=== PATIENT | male | born 1940 ===

== ENCOUNTER 2017-09-07 03:57 | Inpatient (IN) | payer OTHER ==
--- NOTE | 2017-08-27 16:21 | History & Physical Pre-Op ---
General Information and HPI MD Statement: I have seen and personally examined NEHEMIAH HE and documented this H&P. The patient is a 77 year old M who presents with a patient stated chief complaint of low back pain for "years" which has worsened over the last month with classic neurogenic claudication. Source of Information: patient, old records Exam Limitations: no limitations History of Present Illness: Nehemiah is a 77-year-old pleasant gentleman who has been complaining of mild low back pain for "years", with sudden onset severity and progressive worsening over the last month with no apparent injury or precipitating event. He states the pain is now "severe" with radiation to bilateral anterior thighs, left side greater than right, and occasionally into his knees. He describes the pain in his lower back as "pressure". He denies any foot involvement. He does state that his legs buckle with ambulation. He denies any new bowel or bladder changes but does have symptoms from BPH. He is unable to stand or walk due to the discomfort and weakness. He does admit to some improvement with sitting. He rates the pain as a 9/10 in intensity. His MRI shows severe spinal stenosis at L3-4 and moderate spinal stenosis at L4-5. Due to his progressively worsening symptoms and MRI findings, he wants nothing more to do with nonsurgical treatment and has been consented for a posterior lumbar decompression and fusion with iliac crest bone grafting L3-S1 on 09/07/2017. Allergies/Medications Allergies: Coded Allergies: No Known Allergies (08/27/17) Home Med list Acetaminophen (Tylenol Extra Strength) 500 MG TABLET 1 TAB PO TID PAIN ( Reported) Atorvastatin Calcium 20 MG TABLET 1 TAB PO DAILY CHOLESTEROL (Reported) Escitalopram Oxalate 20 MG TABLET 1 TAB PO DAILY GI (Reported) Oxycodone HCl 5 MG TABLET 1 TAB PO BIDP PRN PAIN (Reported) Pregabalin (Lyrica) 75 MG CAPSULE 1 CAP PO BID PAIN (Reported) Tamsulosin HCl (Flomax) 0.4 MG CAP.ER.24H 1 TAB PO DAILY URINE FLOW (Reported ) Compliance With Home Meds: GOOD Past History Medical History Neurological: NONE EENT: cataracts, recent broken jaw due to trauma Cardiovascular: hyperlipidemia Respiratory: NONE Gastrointestinal: GERD Hepatic: NONE Renal: benign prost hyperplasia Musculoskeletal: chronic back pain, disk herniation, degen joint disease, fracture, osteoarthritis, sciatica, spinal stenosis Psychiatric: NONE Endocrine: hypothyroidism Blood Disorders: NONE Cancer(s): NONE 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 FATHER, ; Cause: Unknown cause of morbidity or mortality. SON (ADHD). Age 23. 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 Exam & Diagnostic Data Last 24 Hrs of Vital Signs/I&O Height: 5'6" Weight: 175lbs. Physical Exam General Appearance Alert, Oriented X3, Cooperative, Mild Distress Skin No Rashes, No Breakdown, No Significant Lesion HEENT Atraumatic, PERRLA, EOMI, Mucous Membr. moist/pink Neck Supple, No JVD, No thryomegaly, +2 Carotid Pulse wo Bruit Lymphatic Cervical nl Cardiovascular Regular Rate, Normal S1, Normal S2, No Murmurs Lungs Clear to Auscultation, Normal Air Movement Abdomen Normal Bowel Sounds, Soft, No Tenderness, No Masses Neurological Weak +3/5 Quads bilaterally., Atrophy of the quads bilaterally, Absent bilateral patellar reflexes, +2 bilateral achilles reflexes, LROM of lumbar spine with pain Extremities No Edema Vascular Normal Pulses Medication List Current Psychiatric Med(s): Flomax 0.1mg daily Atorvastatin 20mg daily Lyrica 75mg BID Esomeprazole 20mg daily Oxycodone 5mg q 4 hrs prn pain Tylenol 500mg q 4-6 hrs prn pain Assessment/Plan Assessment/Plan: Assessment: Severe spinal stenosis L3-4 and moderate spinal stenosis at L4-5 Plan: Nehemiah is scheduled for a posterior lumbar decompression and fusion with iliac crest bone grafting L3-S1 on 09/07/2017. We discussed the procedure in full detail as well as the pre-and postoperative course, follow-up care, and anticipated recovery. We also discussed the do's and don'ts and postoperative discharge instructions. We discussed the benefits, alternatives, and risks, not to exclude, , paralysis, infection, bleeding, continued pain, failure of the surgery, need for future surgery, DVT, vascular injury, CSF leak, etc., and given these risks, he still wishes to proceed. He has been seen by Dr. Jennings for preoperative clearance. He is scheduled to have his wire removed from his jaw prior to his spinal surgery. Any changes in this patient's plan is based on this patient's outpatient clinical presentation. As Ranked By This Provider Problem List: 1. BPH (benign prostatic hyperplasia) 2. Hypothyroidism 3. Hyperlipidemia 4. GERD (gastroesophageal reflux disease) Copies To: Stephen RUANO,Simon Attending MD Review Statement Attending Statement Attending MD Statement: examined this patient, discuss w/resident/PA/DIESEL DINKEY OPERATOR, agreed w/resident/PA/DIESEL DINKEY OPERATOR, reviewed images
[~2017-09-07] VITALS: Ht 172.7 cm; Wt 83.9 kg
[~2017-09-07 03:57] MED LIST: ATORVASTATIN CA20 M1 PO; FLOMAX0.4 M1 PO
[2017-09-07] MEDS ORDERED: LYRICA75 M1 PO ×2 (08:15→17:51)
[2017-09-07] MEDS ORDERED: ESCITALOPRAM OX20 MG PO ×2 (08:16→17:51)
[2017-09-07] MEDS ORDERED: TYLENOL EXTRA500 M2 PO ×2 (08:16→17:51)
[2017-09-07] MEDS ORDERED: OXYCODONE HCL5 M1 PO (08:16)
--- NOTE | 2017-09-07 16:14 | Operative Report ---
Operative/Inv Procedure Report Surgery Date: 09/07/17 Name of Procedure: Lumbar laminectomies discectomy and fusion L2 3 3445 local bone lateral intertransverse process fusion L2 to L5 bilaterally. These fluoroscopy Pre-Operative Diagnosis: Severe spinal stenosis L2 3 3445 Post-Operative Diagnosis: Same Estimated Blood Loss: 600cc Surgeon/Die Assembler: Stephen RUANO,Simon Lemus M.D. Anesthesia: general endotracheal tube Monitors: Neuro Operative/Procedure Note Note: After adequate general anesthesia was achieved the patient was placed in the prone position and the back was sterilely prepped and draped. Incision was made in the midline and carried down sharply over the dorsal elements. A metallic object was placed and fluoroscopy was used to identify surgical level. The high -speed bur was used to decorticate the dorsal elements from the inferior aspect of S2 to the superior aspect of L5. Spinous processes of the inferior aspect of L2 entire aspect of L3 and L4 were removed with the Kerrison and Leksell. The disc interval between L5 and S1 was decorticated with the high-speed bur and thickened ligamentum flavum was removed performing a decompression at that level. There is severe thickening of the ligamentum flavum and encroachment of the degenerative facet joints at L3445. This was all debrided. There is severe encroachment laterally extending medial to the pedicles of L4 and L3 which was all debrided. The neuro monitors showed no abnormality during the decompression. There is severe foraminal stenosis which was debrided of hypertrophied facet bone thickened capsule and ligamentum flavum. The stenosis was bilateral. Bone graft was harvested at the time of laminectomies and removal of spinous processes bone quality was excellent. The lateral intertransverse process region from L2 to L5 was decorticated with the high-speed bur and bone was packed laterally. The wound was copiously irrigated and Gelfoam was laid over the laminotomy site. A closure the lumbodorsal fascia was performed with absorbable suture as was subcutaneous tissue. Skin was closed with azalea.
--- NOTE | 2017-09-07 17:41 | Patient Discharge Instructions ---
Acute Coronary Syndrome Inclusion Criteria At DC or during hospital stay patient has or had the following: ACS DIAGNOSIS No Discharge Core Measures Meds if any: Prescribed or Continued at Discharge Meds if any: NOT Prescribed or Continued at Discharge Congestive Heart Failure Inclusion Criteria At DC or during hospital stay patient has or had the following: CHF DIAGNOSIS No Discharge Core Measures Meds if any: Prescribed or Continued at Discharge Meds if any: NOT Prescribed or Continued at Discharge Cerebrovascular accident Inclusion Criteria At DC or during hospital stay patient has or had the following: CVA/TIA Diagnosis No Discharge Core Measures Meds if any: Prescribed or Continued at Discharge Meds if any: NOT Prescribed or Continued at Discharge Venous thromboembolism Inclusion Criteria VTE Diagnosis No VTE Type NONE VTE Confirmed by (Test) NONE Discharge Core Measures - Per Current guidelines, there needs to be overlap - treatment for the first 5 days of Warfarin therapy. - If discharged on Warfarin prior to 5 days of - overlap therapy, the patient will need to be - assessed for post discharge needs including - *Post discharge parental anticoagulation - *Warfarin and/or parental anticoagulation education - *Follow up date to check INR post discharge At least 5 days overlap therapy as Inpatient No Meds if any: Prescribed or Continued at Discharge Note: Overlap Therapy is Warfarin and Anticoagulant Meds if any: NOT Prescribed or Continued at Discharge
[2017-09-07 17:44] LABS: ABSOLUTE BASOPHIL COUNT 0 /CUMM (0.0-0.2); ABSOLUTE EOSINOPHIL COUNT 0 /CUMM (0.0-0.7); ABSOLUTE GRANULOCYTE CT 3.3 /CUMM (1.4-6.5); ABSOLUTE LYMPH COUNT 0.7 /CUMM (1.2-3.4); ABSOLUTE MONOCYTE COUNT 0.2 /CUMM (0.10-0.60); BASOPHIL % 0.3 % (0.0-2.0); EOSINOPHIL % 1.2 % (0-5); GRANULOCYTE % 77.9 % (42.2-75.2); HEMATOCRIT 39.1 % (42-52); MEAN CORPUSCULAR HGB 29.4 PG (27.0-31.0); MEAN CORPUSCULAR HGB CONC 32.5 G/DL (33.0-37.0); MEAN CORPUSCULAR VOLUME 90.3 FL (80.0-94.0); MEAN PLATELET VOLUME 9.3 FL (7.4-10.4); PLATELET COUNT 172 /CUMM (130-400); RBC DISTRIBUTION WIDTH 15.3 % (11.5-14.5); RED BLOOD CELL CT 4.33 /CUMM (4.70-6.10); WHITE BLOOD CELL COUNT 4.3 /CUMM (4.8-10.8)
[2017-09-07] MEDS ORDERED: FLOMAX0.4 M1 PO (17:51)
[2017-09-07] MEDS ORDERED: MILK OF MA400 MG/52 PO (17:51)
[2017-09-07] MEDS ORDERED: ATORVASTATIN CA20 M1 PO (17:51)
[2017-09-07] MEDS ORDERED: DULCOLAX10 M1 RC (17:51)
[2017-09-07] MEDS ORDERED: COLACE100 M1 PO (17:51)
[2017-09-07] MEDS ORDERED: MULTIVITAMINS1 EAC9 PO (17:51)
[2017-09-07] MEDS ORDERED: PERCOCET 5-3251 EACH PO (17:51)
[2017-09-07] MEDS ORDERED: OS-CAL 500+D31 EAC1 PO (17:51)
[2017-09-07] MEDS ORDERED: VITAMIN D31000 UNI2 PO (17:51)
[2017-09-07 18:33] VITALS: BP 130/60
--- NOTE | 2017-09-07 19:15 | RADIOLOGY REPORT ---
EXAMINATION: CR LUMBAR SPINE/INTRAOPERATIVE FLUOROSCOPY CLINICAL INDICATION: L2-S1 laminectomy and discectomy in OR. COMPARISON: None TECHNIQUE/FINDINGS: Fluoroscopic equipment was dedicated to the operating room for the performance of an intraoperative procedure. Single spot film was acquired and is archived in PACS, demonstrating a surgical marker overlying the posterior facet joints at the L3-L4 level. Please refer to operative notes for procedural detail. FLUOROSCOPY TIME: 0.1 minutes. IMPRESSION: Administrative dictation for intraoperative fluoroscopy and image archiving in PACS. Please refer to operative notes for details.
--- NOTE | 2017-09-07 20:16 | PN- Orthopedic ---
Subjective Subjective: Postop check Pt has no major complaints. He admits to soreness at the incision site, but pain is well controlled. Reports poor appetite, but no nausea. Tolerating sips of water. العلي was removed at 6pm. Still awaiting void. Otherwise denies KAUFMAN, dizziness, chest pain, shortness of breath. Objective Vital Signs and I&Os Vital Signs Date Time Temp Pulse Resp B/P B/P Pulse O2 O2 Flow FiO2 Mean Ox Delivery Rate 09/07 1832 97.5 64 18 130/60 100 Nasal 3.0L Cannula 09/07 1829 100 Nasal 2.0L Cannula Intake & Output 09/07 0800 09/07 0000 09/06 1600 09/06 0809/06 0000 Intake Total Output Total Balance Patient 175 lb Weight Physical Exam: Gen: Pt is awake and alert. NAD. Oriented. Cardiac: regular Pulmonary: lungs are CTA bilaterally. No wheezes or rales noted. Ext: Back dressing c/d/i. No surrounding ecchymosis noted. Feet are warm. TEDS in place. LE sensation is intact bilaterally. Strength of DF and PF are 4/5, equal bilaterally. No LE edema or calf tenderness appreciated bilaterally. Assessment/Plan Assessment/Plan Pt is a 77 yo M who is POD #0 s/p lum laminectomy L2-5 with fusion /local bone graft. He remains stable from a surgical standpoint. Plan: -Pain control with percocet or low dose morphine if needed. -Advance diet as tolerated. IVF until tolerating adequate po. -Awaiting void. Due at 2am. -Pt consult in AM for mobilization/ambulation. -Ancef x 3 doses. -Bowel regimen with Colace TID. -Home meds resumed. -Loretta (Dr. Mitchell's PA) to round in AM. Core Measures Venous Thromboembolism VTE Risk Factors Surgery No Mechanical VTE Prophylaxis d/t N/A MechProphylax Ordered No VTE Pharm Prophylaxis d/t NA PharmProphylax ordered
[2017-09-07 22:30] VITALS: BP 130/80
[2017-09-08 06:55] VITALS: BP 126/78
[2017-09-08 09:01] LABS: ABSOLUTE BASOPHIL COUNT 0 /CUMM (0.0-0.2); ABSOLUTE EOSINOPHIL COUNT 0 /CUMM (0.0-0.7); ABSOLUTE GRANULOCYTE CT 8.3 /CUMM (1.4-6.5); ABSOLUTE LYMPH COUNT 0.8 /CUMM (1.2-3.4); ABSOLUTE MONOCYTE COUNT 1.1 /CUMM (0.10-0.60); BASOPHIL % 0 % (0.0-2.0); EOSINOPHIL % 0.1 % (0-5); GRANULOCYTE % 81.6 % (42.2-75.2); HEMATOCRIT 35.4 % (42-52); MEAN CORPUSCULAR HGB CONC 33.4 G/DL (33.0-37.0); MEAN CORPUSCULAR VOLUME 89.8 FL (80.0-94.0); MEAN PLATELET VOLUME 10.1 FL (7.4-10.4); PLATELET COUNT 198 /CUMM (130-400); RBC DISTRIBUTION WIDTH 15.2 % (11.5-14.5); RED BLOOD CELL CT 3.94 /CUMM (4.70-6.10)
[2017-09-08 12:39] LABS: WHITE BLOOD CELL COUNT 10.2 /CUMM (4.8-10.8)
--- NOTE | 2017-09-08 13:03 | PN- Orthopedic ---
Subjective Subjective: No acute events overnight. Patient rested well and is now sitting in the chair. He is tolerating a diet and voiding without difficulty. Admits to some pain, even after taking morphine. No bowel movement as of yet. Denies headache, dizziness, chest pain, shortness of breath, weakness, numbness. Objective Vital Signs and I&Os Vital Signs Date Time Temp Pulse Resp B/P B/P Pulse O2 O2 Flow FiO2 Mean Ox Delivery Rate 09/08 0844 82 118/72 09/08 0655 98.0 78 16 126/78 98 Nasal 2.0L Cannula 09/08 0000 Nasal 2.0L Cannula 09/070 98.0 85 20 130/80 98 09/07 2046 Nasal 2.0L Cannula 09/08 2043 85 130/80 09/07 183 97.5 64 18 130/60 100 Nasal 3.0L Cannula 09/07 1830 100 Nasal 2.0L Cannula Intake & Output 09/08 1600 09/08 0800 09/08 0000 09/07 1600 09/07 0800 09/07 0000 Intake Total 750 650 Output Total 1110 Balance -360 650 Intake, IV 700 450 Intake, Oral 50 200 Output, Urine 1110 Patient 0 lb Weight Weight Reported by Patient Measurement Method Physical Exam: Gen: Pt is awake and alert. NAD. Oriented. Cardiac: regular Pulmonary: lungs are CTA bilaterally. No wheezes or rales noted. Ext: Back dressing c/d/i. No surrounding ecchymosis noted. Feet are warm. TEDS in place. LE sensation is intact bilaterally. Strength of DF and PF are 4/5, equal bilaterally. No LE edema or calf tenderness appreciated bilaterally. Assessment/Plan Assessment/Plan Pt is a 77 yo M who is POD #1 s/p lum laminectomy L2-5 with fusion /local bone graft. He remains stable from a surgical standpoint. Plan: -Pain control with percocet or low dose morphine if needed. -To the regular diet. Okay to discontinue IV fluids. -Continue physical therapy for mobilization. -Ancef to be complete this afternoon. -Bowel regimen with Colace TID. -Home meds resumed. -Dr. Mitchell was in to see the patient and documented a note in the paper chart. I spoke with Loretta Mahoney PA-C and she agrees with the plan. Core Measures Venous Thromboembolism VTE Risk Factors Surgery No Mechanical VTE Prophylaxis d/t N/A MechProphylax Ordered No VTE Pharm Prophylaxis d/t NA PharmProphylax ordered
[2017-09-08 14:46] VITALS: BP 110/78
[2017-09-08 14:47] VITALS: BP 124/58
[2017-09-08 22:10] VITALS: BP 112/60
[2017-09-09 06:33] VITALS: BP 102/60
--- NOTE | 2017-09-09 08:21 | PN- Orthopedic ---
Subjective Subjective: pt in chair, tolerating diet. pain well controlled with oral pain medication this morning and overnight. ambulated with PT yesterday. voiding, no BM. Denies Cp/SOB/KAUFMAN/dizzy/fever Objective Vital Signs and I&Os Vital Signs Date Time Temp Pulse Resp B/P B/P Pulse O2 O2 Flow FiO2 Mean Ox Delivery Rate 09/09 0742 102/60 09/09 0633 98.0 92 18 102/60 96 Room Air 09/08 2210 98.3 82 20 112/60 94 Nasal Cannula 09/08 1447 98.8 75 20 124/58 95 09/08 0944 82 118/72 Intake & Output 09/09 1600 09/09 0000 09/08 1600 09/08 0000 Intake Total 798 858 9407 750 650 Output Total 300 401 406 3709 Balance -100 -100 425 -360 650 Intake, IV 525 700 450 Intake, Oral 200 200 600 50 200 Output, Urine 300 383 602 1629 Patient 0 lb Weight Weight Reported by Patient Measurement Method Physical Exam: gen- NAD resp-clear bilaterally cardiac-RRR abd- ND, soft, nt back- dressing changed, clean and dry with azalea in place, no signs of infection. no drainage ext- strength equal bilaterally. distal motor and sensory function intact. 1+ PT pulse bilaterally Current Medications: Current Medications Sig/Godfrey Start time Last Medication Dose Route Stop Time Status Admin Acetaminophen 650 MG Q4P PRN 09/07 1730 AC PO Atorvastatin Calcium 20 MG DAILY 09/08 1000 AC 09/09 PO 0742 Bisacodyl 10 MG DAILY NEEDED PRN 09/07 1730 AC WV Calcium 600 MG BID 09/07 2200 AC 09/09 PO 0742 Cefazolin Sodium 1,000 MG IQ8 09/08 0000 DC 09/08 IV 09/08 1601 1649 Cholecalciferol 1,000 IU DAILY 09/08 1000 AC 09/09 PO 0742 Docusate Sodium 100 MG TID 09/07 220 AC 09/09 PO 0742 Escitalopram Oxalate 10 MG DAILY 09/08 1000 AC 09/09 PO 0742 Lactated Ringer's 1,000 ML Q10H 09/07 1745 DC 09/08 IV 0148 Magnesium Hydroxide 30 ML Q8P PRN 09/07 1745 AC 09/09 PO 0746 Morphine Sulfate 1 MG Q3P PRN 09/08 0030 AC 09/08 IV 1203 Multivitamins 1 TAB DAILY 09/08 1000 AC 09/09 PO 0742 Ondansetron HCl 4 MG Q6P PRN 09/07 1730 AC IV Oxycodone/ 1 TAB Q4P PRN 09/07 1730 AC Acetaminophen PO Oxycodone/ 2 TAB Q4P PRN 09/07 1730 AC 09/09 Acetaminophen PO 0709 Pregabalin 75 MG BID 09/07 2200 AC 09/09 PO 0742 Tamsulosin HCl 0.4 MG DAILY 09/07 1715 AC 09/09 PO 0742 Trimethobenzamide HCl 200 MG Q6P PRN 09/07 1730 AC IM Results Last 48 Hours of Labs: Laboratory Tests 09/08 09/07 0730 1730 Hematology CBC w Diff NO MAN DIFF REQ NO MAN DIFF REQ WBC (4.8 - 10.8 /CUMM) 10.2 4.3 L RBC (4.70 - 6.10 /CUMM) 3.94 L 4.33 L Hgb (14.0 - 18.0 G/DL) 11.8 L 12.7 L Hct (42 - 52 %) 35.4 L 39.1 L MCV (80.0 - 94.0 FL) 89.8 90.3 MCH (27.0 - 31.0 PG) 30.0 29.4 MCHC (33.0 - 37.0 G/DL) 33.4 32.5 L RDW (11.5 - 14.5 %) 15.2 H 15.3 H Plt Count (130 - 400 /CUMM) 198 172 MPV (7.4 - 10.4 FL) 10.1 9.3 Gran % (42.2 - 75.2 %) 81.6 H 77.9 H Lymphocytes % (20.5 - 51.1 %) 7.8 L 16.2 L Monocytes % (1.7 - 9.3 %) 10.5 H 4.4 Eosinophils % (0 - 5 %) 0.1 1.2 Basophils % (0.0 - 2.0 %) 0 0.3 Absolute Granulocytes (1.4 - 6.5 /CUMM) 8.3 H 3.3 Absolute Lymphocytes (1.2 - 3.4 /CUMM) 0.8 L 0.7 L Absolute Monocytes (0.10 - 0.60 /CUMM) 1.1 H 0.2 Absolute Eosinophils (0.0 - 0.7 /CUMM) 0 0 Absolute Basophils (0.0 - 0.2 /CUMM) 0 0 Assessment/Plan Assessment/Plan Pt is a 77 yo M who is POD #2 s/p lum laminectomy L2-5 with fusion /local bone graft. He remains stable from a surgical standpoint. Plan: -Pain control with percocet -regular diet. -Continue physical therapy for mobilization. -Bowel regimen with Colace TID. -Home meds -Likely DC later today with Percocet for pain. Will discuss with Loretta Mahoney PA-C Core Measures Venous Thromboembolism VTE Risk Factors Surgery No Mechanical VTE Prophylaxis d/t N/A MechProphylax Ordered No VTE Pharm Prophylaxis d/t NA PharmProphylax ordered
[2017-09-09 13:58] VITALS: BP 100/62
--- NOTE | 2017-09-09 14:20 | PN- Orthopedic ---
Subjective Subjective: Patient c/o abdominal discomfort with flatus. No N/V. No fever/chills. No SOB. Preop pain resolved. + expected incisional pain. Safia. po. Voiding without difficulty. Ambulating with walker. Review of Systems: Remarkable for the above complaints. Objective Vital Signs and I&Os Vital Signs Date Time Temp Pulse Resp B/P B/P Pulse O2 O2 Flow FiO2 Mean Ox Delivery Rate 09/09 1358 97.8 74 20 100/62 95 09/09 0742 102/60 09/09 0633 98.0 92 18 102/60 96 Room Air 09/08 2210 98.3 82 20 112/60 94 Nasal Cannula 09/08 1447 98.8 75 20 124/58 95 Intake & Output 09/09 1600 09/09 0809/09 0000 09/08 1600 09/08 0809/08 0000 Intake Total 067 623 4777 750 650 Output Total 300 300 784 666 3394 Balance -300 -100 -100 425 -360 650 Intake, IV 525 700 450 Intake, Oral 200 200 600 50 200 Output, Urine 300 300 190 507 6786 Patient 0 lb Weight Weight Reported by Patient Measurement Method Physical Exam General Appearance: well developed/nourished, alert, awake, mild distress Respiratory: normal breath sounds, no respiratory distress Cardiovascular: regular rate/rhythm Abdomen: normal bowel sounds, soft Back: Incision C/D/I. Dressings changed. Neurologic/Psychiatric: Neurovascularly stable with no new or worsening gross motor or sensory loss. Skin: intact, normal color, warm/dry Current Medications: Current Medications Sig/Godfrey Start time Last Medication Dose Route Stop Time Status Admin Acetaminophen 650 MG Q4P PRN 09/07 1730 AC PO Atorvastatin Calcium 20 MG DAILY 09/08 1000 AC 09/09 PO 0742 Bisacodyl 10 MG DAILY NEEDED PRN 09/07 1730 AC 09/09 AR 1150 Calcium 600 MG BID 09/07 2200 AC 09/09 PO 0742 Cefazolin Sodium 1,000 MG IQ8 09/08 0000 DC 09/08 IV 09/08 1601 1649 Cholecalciferol 1,000 IU DAILY 09/08 1000 AC 09/09 PO 0742 Docusate Sodium 100 MG TID 09/07 2200 AC 09/09 PO 0742 Escitalopram Oxalate 10 MG DAILY 09/08 1000 AC 09/09 PO 0742 Magnesium Hydroxide 30 ML Q8P PRN 09/07 1745 AC 09/09 PO 0746 Morphine Sulfate 1 MG Q3P PRN 09/08 0030 AC 09/08 IV 1203 Multivitamins 1 TAB DAILY 09/08 1000 AC 09/09 PO 0742 Ondansetron HCl 4 MG Q6P PRN 09/07 1730 AC 09/09 IV 1150 Oxycodone/ 1 TAB Q4P PRN 09/07 1730 AC Acetaminophen PO Oxycodone/ 2 TAB Q4P PRN 09/07 1730 AC 09/09 Acetaminophen PO 0709 Pregabalin 75 MG BID 09/07 2200 AC 09/09 PO 0742 Simethicone 80 MG Q6P PRN 09/09 1415 AC PO Tamsulosin HCl 0.4 MG DAILY 09/07 1715 AC 09/09 PO 0742 Trimethobenzamide HCl 200 MG Q6P PRN 09/07 1730 AC IM Results Last 48 Hours of Labs: Laboratory Tests 09/08 09/07 0730 1730 Hematology CBC w Diff NO MAN DIFF REQ NO MAN DIFF REQ WBC (4.8 - 10.8 /CUMM) 10.2 4.3 L RBC (4.70 - 6.10 /CUMM) 3.94 L 4.33 L Hgb (14.0 - 18.0 G/DL) 11.8 L 12.7 L Hct (42 - 52 %) 35.4 L 39.1 L MCV (80.0 - 94.0 FL) 89.8 90.3 MCH (27.0 - 31.0 PG) 30.0 29.4 MCHC (33.0 - 37.0 G/DL) 33.4 32.5 L RDW (11.5 - 14.5 %) 15.2 H 15.3 H Plt Count (130 - 400 /CUMM) 198 172 MPV (7.4 - 10.4 FL) 10.1 9.3 Gran % (42.2 - 75.2 %) 81.6 H 77.9 H Lymphocytes % (20.5 - 51.1 %) 7.8 L 16.2 L Monocytes % (1.7 - 9.3 %) 10.5 H 4.4 Eosinophils % (0 - 5 %) 0.1 1.2 Basophils % (0.0 - 2.0 %) 0 0.3 Absolute Granulocytes (1.4 - 6.5 /CUMM) 8.3 H 3.3 Absolute Lymphocytes (1.2 - 3.4 /CUMM) 0.8 L 0.7 L Absolute Monocytes (0.10 - 0.60 /CUMM) 1.1 H 0.2 Absolute Eosinophils (0.0 - 0.7 /CUMM) 0 0 Absolute Basophils (0.0 - 0.2 /CUMM) 0 0 Assessment/Plan Assessment/Plan Assessment: S/p PLDF L2-L5 with local bone Plan: Dulcolax and bowel regimen. Continue pain meds as needed Ambulate with Nursing Will await D/C once BM occurs and abdominal pain subsides. Problem List: 1. BPH (benign prostatic hyperplasia) 2. Hypothyroidism 3. Hyperlipidemia 4. GERD (gastroesophageal reflux disease) Core Measures Venous Thromboembolism VTE Risk Factors Surgery No Mechanical VTE Prophylaxis d/t N/A MechProphylax Ordered No VTE Pharm Prophylaxis d/t NA PharmProphylax ordered Attending MD Review Statement Attending Statement Attending MD Statement: discuss w/resident/PA/FOREST FIRE PREVENTION MANAGER, agreed w/resident/PA/FOREST FIRE PREVENTION MANAGER
[2017-09-09 22:28] VITALS: BP 128/60
[2017-09-10 05:51] VITALS: BP 122/62
--- NOTE | 2017-09-10 07:27 | PN- Orthopedic ---
Subjective Subjective: Patient is POD #3 sp L2-L5 lumbar laminectomy with fusion. Resting in bed. Passing flatus, no BM yet. Asking to have BM prior to discharge. Had Dulcolax MD yesterday without performance. Objective Vital Signs and I&Os Vital Signs Date Time Temp Pulse Resp B/P B/P Pulse O2 O2 Flow FiO2 Mean Ox Delivery Rate / 0551 97.9 76 20 122/62 97 Room Air / 2228 98.8 80 20 128/60 95 Room Air / 1358 97.8 74 20 100/62 95 04/08 0742 102/60 Intake & Output 04/ 0800 04/ 0000 /08 1600 / 0800 / 0000 09/08 1600 Intake Total 260 617 735 7448 Output Total 300 300 300 700 Balance 260 -300 -100 -100 425 Intake, IV 20 525 Intake, Oral 240 200 200 600 Output, Urine 300 300 300 700 Physical Exam: Gen: AAox3 in NAD Cor: S1+S2+ Lungs: CTA lula Abd: soft, NT, ND, +Bs x4 Ext: strength 5/5 throughout lula lower extremities. Palpable DP pulses lula. Feet warm. Sensation grossly intact. Assessment/Plan Assessment/Plan A: POD #3 s/p L2-L5 lumbar laminectomy with fusion ;AVSS Plan: Soap suds enema x1. D/C home today. Core Measures Venous Thromboembolism VTE Risk Factors Surgery No Mechanical VTE Prophylaxis d/t N/A MechProphylax Ordered No VTE Pharm Prophylaxis d/t NA PharmProphylax ordered
[2017-09-10 07:56] VITALS: BP 122/62
--- NOTE | 2017-09-10 09:40 | Surgical Discharge Summary ---
Visit Information Visit Dates Admission Date: 09/07/17 Discharge Date: 09/10/17 History of Present Illness Chief Complaint: back pain. See H&P for details Medical History Blood Transfusion Hx: No EENT: cataracts, recent broken jaw due to trauma Cardiovascular: hyperlipidemia Gastrointestinal: GERD Renal: benign prost hyperplasia Musculoskeletal: chronic back pain, disk herniation, degen joint disease, fracture, osteoarthritis, sciatica, spinal stenosis Endocrine: hypothyroidism History of MRSA: No History of VRE: No History of CDIFF: No Isolation History: Standard Surgical History Pertinent Surgical History: cataract removal (bilateral), s/p jaw wiring July 2017 due to fracture Family History Relations & Conditions If Any: MOTHER, Age 95. FATHER, ; Cause: Unknown cause of morbidity or mortality. SON (ADHD). Age 23. Psychosocial History Where Do You Live? Home Who Do You Live With? Patient/Self What is Your Primary Language? Mosotho ETOH Use: 1-2 drinks a week Review of Systems: see h&p Hospital Course Course Attending Physician: Simon Mitchell MD Primary Care Physician: Unknown Hospital Course: 77yoM underwent below detailed elective ortho-spine procedure due to severe spinal stenosis L2-3, L3-4, L4-5. Tolerated procedure well, recovered on med/ surg floor. Evaluated and treated by PT- cleared for dc from hospital. See progress notes for daily details. Allergies: Coded Allergies: No Known Allergies (08/27/17) Significant Procedures: Surgery Date: 09/07/17 Name of Procedure: Lumbar laminectomies, discectomy and fusion L2-3, L3-4, L4-5. local bone lateral intertransverse process fusion L2 to L5 bilaterally Pre-Operative Diagnosis: Severe spinal stenosis L2-3, L3-4, L4-5 Surgeon/Disposal Plant Operator: Simon Mitchell MD. Jorge Lemus M.D. Disposition Summary Disposition Principal Diagnosis: Severe spinal stenosis L2-3, L3-4, L4-5 Additional Diagnosis: same, s/p L2-L5 lami with fusion Discharge Disposition: home health services Discharge Instructions General Discharge Information Code Status: Full Code Patient's Diet: resume regular diet Patient's Activity: as tolerated Follow-Up Instructions/Appts: call to schedule appt with Dr. Mitchell Medications at Discharge Discharge Medications: Stop taking the following medications: Oxycodone HCl (Oxycodone HCl) 5 MG TABLET ORAL 2 x Daily as needed as needed for PAIN Acetaminophen (Tylenol Extra Strength) 500 MG TABLET ORAL THREE TIMES DAILY Start taking the following new medications: Acetaminophen (Tylenol Extra Strength) 500 MG TABLET 1 Tablet ORAL THREE TIMES DAILY as needed for TEMP>101 Qty = 90 No Refills Bisacodyl (Dulcolax) 10 MG SUPP.RECT 1 Suppository RECTAL DAILY as needed for CONSTIPATION Qty = 10 No Refills Calcium Carbonate/Vitamin D3 (Os-Mj 500+D3 Caplet) 500 MG-200 TABLET 1 Tablet ORAL TWICE DAILY Qty = 60 No Refills Cholecalciferol (Vitamin D3) 1,000 UNIT TABLET 1 Tablet ORAL DAILY Qty = 30 No Refills Docusate Sodium (Colace) 100 MG CAPSULE 1 Capsule ORAL TWICE DAILY as needed for CONSTIPATION Qty = 60 No Refills Magnesium Hydroxide (Milk Of Magnesia) 400 MG/5 ML ORAL.SUSP 5 Milliliters ORAL EVERY 8 HOURS NEEDED as needed for CONSTIPATION Qty = 300 No Refills Multiple Vitamin (Multivitamins) 1 EACH TABLET 1 Tablet ORAL DAILY Qty = 30 No Refills Oxycodone HCl/Acetaminophen (Percocet 5-325 MG Tablet) 5 MG-325 MG TABLET 1-2 Tablet ORAL EVERY 4-6 HOURS as needed for PAIN Qty = 90 No Refills The following medications have been changed: Old: Tamsulosin HCl (Flomax) 0.4 MG CAP.ER.24H 1 Tablet ORAL DAILY New: Tamsulosin HCl (Flomax) 0.4 MG CAP.ER.24H 0.4 Milligram ORAL DAILY Qty = 30 Old: Atorvastatin Calcium (Atorvastatin Calcium) 20 MG TABLET 1 Tablet ORAL DAILY New: Atorvastatin Calcium (Atorvastatin Calcium) 20 MG TABLET 20 Milligram ORAL DAILY Qty = 30 Old: Pregabalin (Lyrica) 75 MG CAPSULE 1 Capsule ORAL TWICE DAILY New: Pregabalin (Lyrica) 75 MG CAPSULE 75 Milligram ORAL TWICE DAILY Qty = 30 Old: Escitalopram Oxalate (Escitalopram Oxalate) 20 MG TABLET 1 Tablet ORAL DAILY New: Escitalopram Oxalate (Escitalopram Oxalate) 20 MG TABLET 20 Milligram ORAL DAILY Qty = 30
--- NOTE | 2017-09-10 11:56 | PN- Orthopedic ---
Subjective Subjective: Patient feeling much better today. +BM and voiding without difficulty. Safia. po. No N/V. Ambulating without assist. No preop pain. No fever/chills. Review of Systems: Remarkable for the above complaints. Objective Vital Signs and I&Os Vital Signs Date Time Temp Pulse Resp B/P B/P Pulse O2 O2 Flow FiO2 Mean Ox Delivery Rate 09/10 0756 97.9 76 20 122/62 09/10 0551 97.9 76 20 122/62 97 Room Air 09/09 2228 98.8 80 20 128/60 95 Room Air 09/09 1358 97.8 74 20 100/62 95 Intake & Output 09/10 1600 09/10 0809/10 0000 09/09 1600 09/09 0000 Intake Total 260 260 200 200 Output Total 500 300 300 300 Balance -240 260 -300 -100 -100 Intake, IV 20 20 Intake, Oral 240 240 200 200 Output, Urine 500 300 300 300 Physical Exam General Appearance: well developed/nourished, no apparent distress, alert, awake Respiratory: normal breath sounds, no respiratory distress Cardiovascular: regular rate/rhythm Abdomen: normal bowel sounds, soft, non-tender Back: Incision C/D/I. Neurologic/Psychiatric: Neurovascularly stable with no new or worsening gross motor or sensory loss. Skin: intact, normal color, warm/dry Current Medications: Current Medications Sig/Godfrey Start time Last Medication Dose Route Stop Time Status Admin Acetaminophen 650 MG Q4P PRN 09/07 1730 AC PO Atorvastatin Calcium 20 MG DAILY 09/08 1000 AC 09/10 PO 0756 Bisacodyl 10 MG DAILY NEEDED PRN 09/07 1730 AC 09/09 MD 1150 Calcium 600 MG BID 09/07 2200 AC 09/10 PO 0755 Cholecalciferol 1,000 IU DAILY 09/08 1000 AC 09/10 PO 0756 Docusate Sodium 100 MG TID 09/07 2200 AC 09/10 PO 0755 Escitalopram Oxalate 10 MG DAILY 09/08 1000 AC 09/10 PO 0756 Magnesium Hydroxide 30 ML Q8P PRN 09/07 1745 AC 09/10 PO 0757 Morphine Sulfate 1 MG Q3P PRN 09/08 0030 AC 09/08 IV 1203 Multivitamins 1 TAB DAILY 09/08 1000 AC 09/10 PO 0756 Ondansetron HCl 4 MG Q6P PRN 09/07 1730 AC 09/09 IV 1150 Oxycodone/ 1 TAB Q4P PRN 09/07 1730 AC 09/10 Acetaminophen PO 0759 Oxycodone/ 2 TAB Q4P PRN 09/07 1730 AC 09/09 Acetaminophen PO 0709 Pregabalin 75 MG BID 09/07 2200 AC 09/10 PO 0759 Simethicone 80 MG Q6P PRN 09/09 1415 AC 09/09 PO 2116 Tamsulosin HCl 0.4 MG DAILY 09/07 1715 AC 09/10 PO 0756 Trimethobenzamide HCl 200 MG Q6P PRN 09/07 1730 AC IM Assessment/Plan Assessment/Plan Assessment: S/P PLDF L2-L5 with local bone Plan: D/C home today Continue Oxycodone prn pain. Do's and Don'ts explained. Disch. Instr. given Will F/U as outpatient Problem List: 1. BPH (benign prostatic hyperplasia) 2. Hypothyroidism 3. Hyperlipidemia 4. GERD (gastroesophageal reflux disease) Core Measures Venous Thromboembolism VTE Risk Factors Surgery No Mechanical VTE Prophylaxis d/t N/A MechProphylax Ordered No VTE Pharm Prophylaxis d/t NA PharmProphylax ordered Attending MD Review Statement Attending Statement Attending MD Statement: examined this patient, discuss w/resident/PA/NEUROSURGICAL NURSE PRACTITIONER, agreed w/resident/PA/NEUROSURGICAL NURSE PRACTITIONER
== END 2017-09-10 13:03 | DRG 460 ==
LOC: SDA 03:57 → ENRESERV 16:53 → ENTRNSPT 17:52 → EDTRNSPTSTS 17:59 → EDTRNSPT 17:59 → 2NA 18:12 → CMPTRNSPT 18:36 → ENPENDDIS 09-10 10:33 → 2NA 09-10 13:03
PROVIDERS: Orthopaedic Surgery Orthopaedic Surgery of the Spine
PROC: 4A11X4G Monitoring of Peripheral Nervous Electrical Activity, Intraoperative, External Approach (ICD-10-PCS; principal; 2017-09-07)
PROC: 0SG1071 Fusion of 2 or more Lumbar Vertebral Joints with Autologous Tissue Substitute, Posterior Approach, Posterior Column, Open Approach (ICD-10-PCS; principal; 2017-09-07)
PROC: 0SB20ZZ Excision of Lumbar Vertebral Disc, Open Approach (ICD-10-PCS; principal; 2017-09-07)
DX: M48.062 Spinal stenosis, lumbar region with neurogenic claudication (principal); E03.9 Hypothyroidism, unspecified; K21.9 Gastro-esophageal reflux disease without esophagitis; N40.1 Benign prostatic hyperplasia with lower urinary tract symptoms; Z87.81 Personal history of (healed) traumatic fracture; Z87.891 Personal history of nicotine dependence
CPT/HCPCS: 2NAP; 36415; 36592; 72020; 87086; 97116-GO; 97161-GP; 97530-GO; C9399; J0131; J0690; J1644; J2405; J3250; J3490; J7120